=== PATIENT | male | born 1985 | race Caucasian/White ===

== ENCOUNTER 2016-12-04 01:44 | Emergency (ER) | payer OTHER ==
[~2016-12-04] VITALS: Ht 193 cm; Wt 96.0 kg
[~2016-12-04 01:44] MED LIST: NAPR-260 PO
[2016-12-04 01:45] VITALS: Ht 193 cm; Wt 96.0 kg
[2016-12-04] MEDS ORDERED: ALPR0.5T PO (03:16)
--- NOTE | 2016-12-04 03:19 | ERD ---
ER Documentation Chief Complaint Date/Time DATE: 12/04/16 TIME: 03:17 Chief Complaint CP, anxiety HPI This a 31-year-old male who is complaining of several weeks of anxiety and panic attacks. He states he gets chest pain shortness of breath with tense trapezius muscles he feels some tingling in his left trapezius. No syncope palpitations dizziness. The patient is under a lot of stress at work. Is very type A personality. Patient says he is very worried about his symptoms. He states that when he gets these attacks he has a strong sense of impending doom. No tremors. ROS All systems reviewed and are negative except as per history of present illness. Medications Home Meds Active Scripts Alprazolam* (Xanax*) 0.5 Mg Tab, 0.5 MG PO Q8H Y for ANXIETY, #14 TAB Prov:TAMARA REDMAN DO 12/04/16 Naproxen* (Naprosyn*) 500 Mg Tablet, 500 MG PO BID Y for PAIN AND/OR INFLAMMATION, #20 TAB Prov:Tuyet Osuna PA-C 09/24/16 Allergies Allergies: Coded Allergies: No Known Drug Allergies (Verified Allergy, Unknown, 09/24/16) PMhx/Soc History of Surgery: No Anesthesia Reaction: No Hx Neurological Disorder: No Hx Respiratory Disorders: No Hx Cardiac Disorders: No Hx Psychiatric Problems: Yes (anxiety) Hx Miscellaneous Medical Probl: No Hx Alcohol Use: Yes (occassional) Hx Substance Use: No Hx Tobacco Use: No Smoking Status: Never smoker FmHx Family History: No coronary disease Physical Exam Vitals Vital Signs Date Time Temp Pulse Resp B/P Pulse Ox O2 Delivery O2 Flow Rate FiO2 12/04/16 01:45 97.6 77 18 132/76 100 Physical Exam Const: Well-developed, well-nourished Head: Atraumatic, normocephalic Eyes: Normal Conjunctiva, PERRLA, EOMI, normal sclera, no nystagmus ENT: Normal External Ears, Nose and Mouth, moist mucus membranes. Neck: Full range of motion. No meningismus, no lymphadenopathy. Resp: Clear to auscultation bilaterally, no wheezing, rhonchi, rales Cardio: Regular rate and rhythm, no murmurs, S1 S2 present Abd: Soft, non tender x 4, non distended. Normal bowel sounds, no guarding or rebound, no pulsitile abdominal masses or bruits Skin: No petechiae or rashes, no ecchymosis , no maculopapular rash Back: No midline or flank tenderness Ext: No cyanosis, or edema, FROM x 4, normal inspection, neurovascularly intact x 4 Neur: Awake and alert, STR 5/5 x 4, sensation intact x 4, no focal findings, cerebellum intact Psych: Anxious Procedures/MDM EKG: Rate/Rhythm: Normal Sinus Rhythm,NL intervals QRS, ST, QT: NORMAL HI, QRS, QT] Impression: NORMAL EKG Discussed distressing techniques Departure Diagnosis: Primary Impression: Anxiety Condition: Stable Patient Instructions: Anxiety Reaction TAMARA REDMAN DO Dec 04, 2016 03:19
== END 2016-12-04 03:19 | disposition home or self-care (01) ==
LOC: E/R 01:44
DX: F41.9 Anxiety disorder, unspecified (principal); R07.9 Chest pain, unspecified
CPT/HCPCS: 93005